=== PATIENT | female | born 1985 | race Caucasian/White ===

== ENCOUNTER 2016-10-28 07:57 | Observation (INO) | payer OTHER ==
--- NOTE | 2016-10-25 19:20 | HISTORY AND PHYSICAL ---
ADMITTED: 10/28/2016 HISTORY OF PRESENT ILLNESS: The patient is 31-year-old female with a chief complaint of a painful unstable left ankle. MRI revealed a bone contusion and overuse syndromes. She states that her right ankle has felt great ever since we did an arthroscopy and stabilization, and she would like to proceed with that procedure. MEDICAL/SURGICAL HISTORY: Her past medical history includes a history of psoriatic arthritis, anxiety, and depression. Surgical history: Tonsils and adenoids, C-sections, and the aforementioned right ankle carried out by myself on 08/18/2015. MEDICATIONS: Current medications are: 1. Methotrexate 1 mg weekly. 2. Folic acid orally daily. ALLERGIES: REPORTS AN ALLERGY TO: 1. CIPROFLOXACIN. 2. SULFA. SOCIAL HISTORY: She is a single mother of 3. Smokes 3-4 cigarettes weekly. Employed at [employer]. FAMILY HISTORY: Positive for maternal diabetes. PRIMARY CARE PHYSICIAN: Dr. Romeo Lozada, [facility] [facility]. REVIEW OF SYSTEMS: A 10-point review of systems positive for psoriatic arthritis. PHYSICAL EXAMINATION: GENERAL: The patient is alert and oriented x3. HEAD AND NECK: PERRLA. Normocephalic. Pupils are equal, round, and accommodate to light. LUNGS: Respirations are clear to auscultation. No wheezing, rhonchi, rales, or rubs. HEART: Regular rate and rhythm. Regular S1 and S2. No murmurs or gallops. ABDOMEN: Soft, tender, nondistended. Normal tones. LOWER EXTREMITY: Vascular: DP and PT pulses are palpable. Skin texture and turgor within normal limits. NEUROLOGIC: Deep tendon reflexes and epicritic sensations are intact. MUSCULOSKELETAL: Orthopedically, there is tenderness on the anterolateral aspect of the left ankle. Positive anterior drawer sign. Crepitus within the joint. Muscle strength is within normal limits. LAB/IMAGING: Imaging revealed a bone contusion and chronic overuse syndrome. IMPRESSION: 1. Chronic instability and overuse syndrome, left ankle. PLAN: The patient is consented for an arthroscopy, foot debridement, and a left ankle stabilization. She is well aware of the planned procedure. No contraindications to surgery at this time. Surgery is scheduled on an outpatient basis at [place] on 10/28/2016.
[~2016-10-28] VITALS: Ht 160 cm; Wt 68.0 kg
[2016-10-28] VITALS (10 sets, daily range): BP systolic 95–128; BP diastolic 32–90
[~2016-10-28 07:57] MED LIST: DEPO-PROVER150 MG/ML INJ; FLUOXETINE HCL20 MG PO; FOLIC ACID1 MG PO; METHOTREXATE25 MG/ML INJ; PERCOCET1 TA4 PO; TRAMADOL HCL50 MG PO; ZOFRAN4 MG PO
--- NOTE | 2016-10-28 08:57 | NUR ---
PT ADMITTED FOR LEFT ANKLE SURGERY. PT CONFIRMED HER NAME, , PLANNED PROCEDURE, SURGICAL SITE AND SIDE, MEDICATIONS AND ALLERGIES, NPO STATUS. SIGNED CONSENT ON CHART. PRE-OP TEACHING COMPLETED AND QUESTIONS ANSWERED. CONNER HUGGER WARMER PLACED ON PT.
[2016-10-28] MEDS ORDERED: PERCOCET1 TA4 PO (11:10)
--- NOTE | 2016-10-28 11:12 | Provider's Discharge Care Plan ---
Problem, Goal, Plan Problem List 1. Instability of right ankle joint Goals: Improve function Instructions: Follow up as directed
--- NOTE | 2016-10-28 11:12 | Provider's Discharge Care Plan ---
Problem, Goal, Plan Problem List 1. Instability of right ankle joint Goals: Improve function Instructions: Follow up as directed
--- NOTE | 2016-10-28 13:35 | NUR ---
PATIENT ARRIVED TO ROOM 209B FROM PACU. PATIENT LETHARGIC AND TRANSFERRED FROM STRETCHER TO BED BY SLIDING OVER USING HER RLE. LEFT ANKLE WRAPPED WITH UMA BANDAGE CDI. PATIENT ABLE TO WIGGLE TOES AND CAP REFILL LESS THAN 3 SECONDS. PHONE CALL TO RT TO GET CO2 MONITORING STARTED DUE TO MEDS GIVEN IN PACU. USING BEDPAN AT THIS TIME DUE TO LETHARGY.
--- NOTE | 2016-10-28 14:10 | OPERATIVE REPORT ---
DATE OF SURGERY: 10/28/2016 SURGEON: Thai Montano DPM PREOPERATIVE DIAGNOSIS: 1. Chronic ankle instability, left ankle POSTOPERATIVE DIAGNOSES: 1. Hemorrhagic synovitis 2. Chronic ankle instability PROCEDURES PERFORMED: 1. Ankle arthroscopy with debridement 2. Lateral ankle stabilization ANESTHESIA: General. HEMOSTASIS: Achieved by mid thigh tourniquet inflated to 300 mmHg pressure. TOURNIQUET TIME: Total tourniquet time 58 minutes. MATERIALS: 3-0 and 4-0 Polysorb and 4-0 Surgipro and one Arthrex internal brace kit. INJECTABLES: Injected 20 mL of 0.5% bupivacaine plain. COMPLICATIONS: None. CONDITION: The patient tolerated anesthesia and procedure well. INDICATIONS: The patient is a 31-year-old female with chronic ankle instability of her left ankle. We carried out successfully a stabilization procedure of her right approximately a year ago. Recent MRI on the left revealed an overuse syndrome and inflammation within the surrounding tendons. States that she would like to proceed with surgical intervention to stabilize her ankle, since she has had a good result with her right. There are no contraindications to surgery at this time. SURGICAL TECHNIQUE: The patient was brought to the operating room and placed on the operative table in the supine position. General anesthetic was administered, pneumatic tourniquet was then placed above her left knee. Left lower extremity was then prepped and draped in the normal sterile fashion. Prior to inflating the tourniquet, an intraoperative pause was carried out, with positive identification of proper limb, consent form verified and confirmed. Esmarch bandage was utilized to exsanguinate the limb, the tourniquet was then inflated. Attention was then directed to procedure #1. Ankle arthroscopy with debridement. Attention was directed to the anterolateral aspect of the left ankle with the Arthrex ankle distractor in place and employed. The ankle was distracted. An 18-gauge needle was utilized to identify and locate the ankle joint. Corresponding 11 blade was utilized to make a small portal incision. It was dissected via portal dissection. The camera was introduced. Upon entry, hemorrhagic synovitis was encountered on the anterolateral aspect of the ankle. A corresponding medial incision was made, with an 18 gauge needle initially used to identify the ankle, and a corresponding 11 blade used to make a small incision. Portal dissection was carried out. A small joint shaver was then utilized. At this time, the hemorrhagic synovitis was resected in toto. The corresponding posterior ligament structures were intact and in good condition, with no evidence of demyelination or breakdown. The anterolateral ligament was a little thinner on the intracapsular portion, with remnants and sections of the hemorrhagic synovium seen. The articulating surface had some small depressions, not quite osteochondral lesions, particularly on the tibial plafond. Approximately 3000 liters of lactated Ringers were placed through the joint. The shaver and camera were removed, with portal closed with 4-0 Surgipro. Attention was then directed to procedure #2. Lateral ankle stabilization. At this time, the attention was directed to the anterior distal fibula where a curvilinear incision was made and dissected via sharp and blunt techniques. A moistened sponge was utilized to remove the underlying adipose. A periosteal elevator was utilized to incise the periosteum on the distal anterior fibula. Once reflected, a guidewire was driven obliquely at a 45-degree angle in the distal fibula, towards the lateral gutter, verified under fluoroscopy for proper placement. A 2.7 cannulated drill was utilized. It was tapped in a SwiveLock where the #2 FiberTape was inserted. Dissection was carried anterior and medially. Identification of the retinaculum was incised and retracted. We then encountered an intact, slightly attenuated anterior talofibular ligament. Following its fibers towards the anterior trochlear surface of the talus and neck, the guidewire was driven obliquely, just inferior to the trochanter surface and oriented from distal lateral to proximal medial at 45 degrees angle to the posterior medial malleolus. The 2.7 drill was drilled; it was then overdrilled with 3.4 drill and tapped with the 475 tap. Additional SwiveLock and the tape was inserted with the foot held in a neutral position. The FiberTape was then inserted overlying the attenuated anterior talofibular ligament, firmly augmenting the ligament. The area was flushed. The tails were cut. The tails of the FiberTape were removed. The foot was placed through a range of motion, and there was negative anterior drawer, with good stability retained. The periosteum and retinaculum were reapproximated with 3-0 Polysorb, subcutaneous with 4-0, and skin edges reapproximated in a running fashion with 4-0 Surgipro. The area was then locally anesthetized with the aforementioned local anesthetic. The tourniquet was released, with reactive hyperemia and good digital perfusion. The patient tolerated the procedure and anesthetic well and left the operating room with vital signs stable. While in recovery, written instructions for weightbearing with the aid of a fracture boot. Prognosis is guarded. She will be discharged home in stable condition.
--- NOTE | 2016-10-28 14:17 | NUR ---
PT BELONGINGS TRANSFERED TO ROOM 209B, PT WILL BE STAYING FOR EXTENDED RECOVERY/OBSERVATION.
--- NOTE | 2016-10-28 14:41 | NUR ---
PT TRASPORTED TO ACUTE CARE AT 1323. PT STATUS WAS CHANGED TO 23HR OBSERVATION PER MD DUE TO SEVERE 10/10 LEFT ANKLE PAIN. PT WAS GIVEN MULITIPLE PAIN MEDICATIONS( SEE CHART) W/O RELIVE OF PAIN. PT DENIES NASUEA. VSS. LEFT LEG IS ELEVATED ON TWO PILLOWS, ICED PER MD ORDER. LEFT ANKLE DRESSING IS CLEAN AND DRY. REPORT GIVEN TO RN.
--- NOTE | 2016-10-28 19:38 | NUR ---
CALLED PATIENTS DR JEFF TO TELL HIM PATIENT IS COMPLAINING OF SOME CHEST PAIN. HE TOLD ME TO CALL THE HOSPITIALIST AND TO HAVE HOSPITILIST CALL HIM SO THAT IS WHAT I DID. DR BRADY IS NOW AWARE OF PATIENTS CONDITION. NO OTHER SYMPTOMS. VSS CURRENTLY. NO OTEHR NEW ORDERS.
--- NOTE | 2016-10-28 20:29 | Progress Note ---
Subjective General Note Date: October 28, 2016 Admission Date: October 28, 2016 Hospital Day: 1 PCP: Thai Montano M.D. Status: Observation Advanced Directive: FULL CODE Room: 209-B Brief History: The patient is a 31-year-old female with a significant past medical history of psoriatic arthritis, generalized anxiety disorder, depression, admitted following left ankle arthroscopically and debridement with lateral ankle stabilization. The patient had excessive pain requiring ongoing evaluation and treatment after surgery. The patient was noted to develop chest tightness and the hospitalist service consulted for medical management and further evaluation. The patient stated she developed mild chest heaviness. This was minor. No significant shortness of breath. The patient denied any wheezing. She denied any history of palpitations, diaphoresis, nausea or vomiting. No previous history of shortness of breath. The patient does have a history of nicotine dependence smoking. Subjective: The patient states she has mild shortness of breath but complains most significantly about pain involving the left ankle. Patient requests: Better control of left ankle pain Physical Exam Vital Signs / I&Os Vital Signs Date Time Temp Pulse Resp B/P Pulse O2 O2 Flow FiO2 Ox Delivery Rate 10/28 1830 97.5 94 16 107/68 100 Room Air 10/28 1653 11 10/28 1615 97.3 88 18 117/69 100 Room Air 10/28 1547 101 10 94 10/28 1515 98.1 93 14 116/72 100 Room Air 10/28 1445 97.9 90 16 123/68 98 Room Air 10/28 1416 97.7 97 20 123/68 98 Room Air 0.0 10/28 1403 97.3 87 16 128/90 100 Room Air 0.0 10/28 1348 97.7 90 12 104/56 99 Room Air 0.0 10/28 1333 97.7 100 12 110/75 95 Room Air 10/28 1323 97.7 104 13 109/73 97 Nasal 3.0 Cannula 10/28 1320 102 12 117/66 100 Nasal 3.0 Cannula 10/28 1310 101 12 109/73 100 Nasal 3.0 Cannula 10/28 1300 97 15 107/48 100 Nasal 3.0 Cannula 10/28 1250 94 15 115/64 100 Nasal 3.0 Cannula 10/28 1240 104 18 119/76 100 Nasal 3.0 Cannula 10/28 1230 100 8 119/80 100 Nasal 3.0 Cannula 10/28 1225 100 9 122/73 100 Nasal 3.0 Cannula 10/28 1220 100 8 125/89 100 Nasal 3.0 Cannula 10/28 1215 98 10 111/54 100 Nasal 3.0 Cannula 10/28 1210 104 13 109/58 100 Nasal 3.0 Cannula 10/28 1205 113 14 99/47 100 Nasal 3.0 Cannula 10/28 1200 79 18 98/57 100 Nasal 3.0 Cannula 10/28 1155 89 8 102/61 100 Nasal 3.0 Cannula 10/28 1150 83 10 107/62 100 Nasal 3.0 Cannula 10/28 1145 74 13 95/50 100 Nasal 3.0 Cannula 10/28 1140 88 12 107/53 100 Nasal 3.0 Cannula 10/28 1135 79 10 100/61 100 Nasal 3.0 Cannula 10/28 1130 80 10 103/52 100 Nasal 3.0 Cannula 10/28 1125 88 10 108/62 100 Nasal 3.0 Cannula 10/28 1120 90 15 112/63 99 10/28 1115 105 20 109/72 98 10/28 1110 96 15 107/66 99 10/28 1107 98.6 106 17 114/70 99 10/28 0750 97.3 76 16 109/66 100 General Appearance Alert, Oriented X3, Cooperative, Mild distress Lungs Normal air movement, minimal exp wheeeze with FVC Cardiovascular Regular rate and rhythm, Normal S1 and S2 Abdomen Normal bowel sounds, Soft Neurological Cranial nerves intact, No lateralizing signs Psych/Mental Status Mental status normal, mood depressed LAB Results Laboratory Tests 10/28 10/28 0820 UNK Chemistry Plasma Sodium (136 - 145 mmol/L) 142 Plasma Potassium (3.5 - 5.1 mmol/L) 4.1 Plasma Chloride (98 - 107 mmol/L) 107 CO2 (Enzymatic) (21 - 32 mmol/L) 29 BUN (7 - 18 mg/dL) 9 Creatinine (0.6 - 1.3 mg/dL) 0.6 Est GFR ( Amer) (mL/min) >60 Est GFR (Non-Af Amer) (mL/min) >60 Glucose (70 - 110 mg/dL) 86 Plasma Calcium (8.5 - 10.1 mg/dL) 8.5 Total Bilirubin (0.0 - 1.0 mg/dL) 0.3 AST (15 - 37 U/L) 14 ALT (12 - 78 U/L) 22 Alkaline Phosphatase (46 - 116 U/L) 59 Total Protein (6.4 - 8.2 g/dL) 7.0 Albumin (3.3 - 5.0 g/dL) 3.2 Hematology WBC (4.5 - 11.5 K/uL) 8.1 RBC (4.00 - 5.20 M/uL) 3.87 Hgb (12.0 - 16.0 gm/dL) 12.1 Hct (36.0 - 46.0 %) 35.9 MCV (80 - 100 fL) 93 MCH (26 - 34 pg) 31 RDW (11.6 - 14.8 %) 12.9 Neut % (Auto) (50 - 75 %) 60.3 Lymph % (Auto) (25 - 40 %) 30.2 [place] % (Auto) (3 - 14 %) 8.0 Eos % (Auto) (0 - 4 %) 1.0 Baso % (Auto) (0 - 2 %) 0.5 Plt Count, EDTA (150 - 400 K/uL) 375 PUBS MCHC (31 - 37 g/dL) 34 Urines Urine Test NEGATIVE Assessment and Plan Problem List 1. Chest heaviness Status Acute Onset Date 10/28/16 Plan -The patient gives a history of mild "chest heaviness" -Physical exam shows mild expiratory wheezes on a forced expiratory volume -Begin beta agonist in the form of albuterol neb every 6 hours when necessary shortness of breath -Monitor -Encourage smoking cessation -Smoking cessation education 2. Nicotine dependence Status Chronic Onset Date Unknown Plan -Patient with history of nicotine dependence-smoking -Smoking cessation education -NicoDerm patch when necessary -Encourage smoking abstinence post discharge 3. Instability of right ankle joint Plan -Patient with excessive pain postoperatively. -Begin Toradol 30 mg IV every 6 hours when necessary -Continue pain management per podiatry. Current status: Fair, stable Anticipated discharge date: Anticipated discharge in a.m. Anticipated discharge placement: Home Patient care time: Time spent in chart review, patient interview, physical exam, CPOE, and care documentation: 35 minutes Visit to patient today: 1 Complexity of care: Low E&M Codes Inpatient Consult: MYRIAM-[id number]
--- NOTE | 2016-10-28 21:57 | NUR ---
WAS PASSED OFF IN REPORT DR IS AWARE OF CURRENT LAB VALUES. PATIENT RESTING IN BED NOW. IN NO DISTRESS CURRENTLY. CALL LIGHT WITHIN REACH. HAS BEEN USING COMMOD WITHOUT HELP.
[2016-10-29 02:52] VITALS: BP 89/50
--- NOTE | 2016-10-29 03:09 | NUR ---
PT. IS RESTING IN BED AT THIS TIME. C/O 01/20 L FOOT PAIN AT BEGINNING OF SHIFT, ADMINISTERED PERCOCET. ACCORDING TO PT., THIS WAS NOT EFFECTIVE, AND PT. WAS STILL IN A LOT OF PAIN AT 01/20. ADMINISTERED DILAUDID, EFFECTIVE. PT. IS RESTING QUIETLY, HAS ETC02 MONITORING ON. PIVOTING TO THE COMMODE, ENCOURAGED PT. TO ASK FOR ASSISTANCE IF IT IS TOO PAINFUL TO PIVOT INDEPENDENTLY. CALL LIGHT WITHIN REACH. TM.
[2016-10-29 06:56] VITALS: BP 90/54
--- NOTE | 2016-10-29 08:45 | NUR ---
RECEIVED PT UP IN THE CHAIR, AWAKE ,ALERT, ORIENTED, COHERENT, COOPERATIVE, V/S TAKEN AND RECORDED. ASSESSMENT DONE. PT PAIN LEVEL IS 3/10. SEEN AND EXAMINED BY DR JEFF, WITH ORDERS MADE AND CARRIED OUT. FOR PT. EVAL THEN PT IS GOING HOME. PT UNDERSTOOD. PUT THE BOOT ON THE LEFT FOOT THEN PT AMBULATE TO THE BATHROOM, STANDBY ASIST ONLY. COMPLAINT OF HEARTBURN. ASKED WHAT SHE TAKES FOR IT. SO I CAN CALL DR JEFF : OH, IT'S OK" PT STATES. OFFERED CRACKERS BUT DECLINED AT THIS TIME. NEEDS ATTENDED.
--- NOTE | 2016-10-29 10:02 | NUR ---
DISCHARGE INSTRUCS., RPESC., GIVEN TO PT. QUESTIONS AND CONCERNS ANSWERED. EMPHASIZED ON DR TOMER JOEL. PT WENT HOME WITH FRIEND. ASSISTED BY MS LUCIA TO THE LOBBY VIA WHEELCHAIR.
== END 2016-10-29 10:15 | disposition home or self-care (01) ==
LOC: OR SRH 07:57 → SCU SRH 07:58 → OR SRH 10:00 → SCU SRH 13:00 → ACUTE2 SRH 13:00
PROVIDERS: ADMIT Podiatrist
PROC: 0SBG4ZZ Excision of Left Ankle Joint, Percutaneous Endoscopic Approach (ICD-10-PCS; principal; 2016-10-28 10:00)
PROC: 0MUR0JZ Supplement Left Ankle Bursa and Ligament with Synthetic Substitute, Open Approach (ICD-10-PCS; principal; 2016-10-28 10:00)
DX: M25.372 Other instability, left ankle (principal); M70.872 Other soft tissue disorders related to use, overuse and pressure, left ankle and foot; L40.50 Arthropathic psoriasis, unspecified; F32.9 Major depressive disorder, single episode, unspecified; F41.9 Anxiety disorder, unspecified; F17.210 Nicotine dependence, cigarettes, uncomplicated
CPT/HCPCS: 29229; 29230; 50002; 60001; 70002; 80102; 80144; 80212; 80360; 80461; 83413; 83612; 83860; 84038; 84522; 90074; 90100; 93070; 95059